=== PATIENT | male | born 1970 | race Caucasian/White ===

== ENCOUNTER → 2017-01-01 | Outpatient (CLI) | payer OTHER ==
[2017-01-01 10:18] LABS: ALT/SGPT 29 U/L (12-78); AST/SGOT 10 U/L (15-37); BLOOD UREA NITROGEN 14 mg/dl (7-18); BUN/CREATININE RATIO 15.7 (10-20); CALCIUM 8.7 mg/dl (8.5-10.1); CARBON DIOXIDE 30 mmol/L (21-32); CHLORIDE 106 mmol/L (98-107); CREATININE 0.91 mg/dl (0.60-1.40); GLUCOSE 94 mg/dl (70-99); POTASSIUM 3.7 mmol/L (3.5-5.1); SODIUM 141 mmol/L (136-145)
[2017-01-01 10:21] LABS: PROLACTIN 5.07 ng/mL
[2017-01-01 10:29] LABS: ALB/GLOB RATIO 1.2 (0.9-2); ALKALINE PHOSPHATASE 84 U/L (45-117); THYROID STIMULATING HORMONE 0.868 uIu/ml (0.300-4.500)
[2017-01-14 12:15] LABS: TESTOSTERONE,TOTAL 451 ng/dL (250-1100)
== END | disposition home or self-care (01) ==
LOC: C.LAB 08:33
PROVIDERS: ATTEND Plastic Surgery
DX: N62 Hypertrophy of breast (principal)

== ENCOUNTER → 2017-01-23 | Outpatient (CLI) | payer OTHER ==
--- NOTE | 2017-01-23 15:17 | MAMMOGRAPHY REPORT ---
MALE BILATERAL DIGITAL DIAGNOSTIC MAMMOGRAM TOMOSYNTHESIS WITH CAD: 01/23/2017 CLINICAL HISTORY: Asymptomatic Pre-Reduction. TECHNIQUE: Bilateral breast tomosynthesis in addition to standard 2D mammography was performed. Curre nt study was also evaluated with a Computer Aided Detection (CAD) system. COMPARISON: No prior exams were available for comparison. BREAST COMPOSITION: The breast parenchyma is nearly entirely fat. FINDINGS: No suspicious mass, architectural distortion, asymmetry or cluster of suspicious microcalc ifications is seen. There is no evidence of gynecomastia, focal skin thickening or nipple retraction . IMPRESSION: ACR BI-RADS CATEGORY 1: NEGATIVE There is no mammographic evidence of malignancy or gynecomastia. The patient has been verbally notifi ed of the results. Approximately 10% of breast cancers are not detected with mammography. A negative mammographic report should not delay biopsy if a clinically suggestive mass is present. Hermila Gaytan M.D. ay/:01/23/2017 10:55:14 Product Design Specialist: Sandy YUAN(Jose)(Izabella), [facility] letter sent: Normal 1/2 BI-RADS Code: ACR BI-RADS Category 1: Negative
== END | disposition home or self-care (01) ==
LOC: C.MAMM 09:57
PROVIDERS: ATTEND Plastic Surgery
DX: N62 Hypertrophy of breast (principal); R92.2 Inconclusive mammogram

== ENCOUNTER 2017-03-25 05:48 | Observation (INO) | payer OTHER, SELFPAY ==
[2017-03-21 09:57] VITALS: BMI 34.0
--- NOTE | 2017-03-21 10:32 | PAT Medication Instructions ---
Service Date Mar 21, 2017. Current Home Medication List Albuterol Hfa (Ventolin Hfa), 2 PUFFS INH PRN Aspirin (Aspirin Ec), 81 MG PO HS Atorvastatin (Lipitor), 10 MG PO HS Cetirizine (Zyrtec), 10 MG PO HS Cholecalciferol (Vitamin D3), 4,000 UNITS PO QAM Epinephrine (Epipen), 0.3 MG IM UD Fluticasone Prop/Salmeterol (Advair Diskus 250/50 60 Dose), 1 PUFF INH BID Lansoprazole (Prevacid), 30 MG PO QAM Montelukast Sodium (Singulair), 10 MG PO QAM Medication Instructions For Your Scheduled Surgery -Continue as directed: Epinephrine (Epipen), 0.3 MG IM UD - Hold the following medications per your surgeon's instructions: Aspirin (Aspirin Ec), 81 MG PO HS Cholecalciferol (Vitamin D3), 4,000 UNITS PO QAM - Take the following medications the morning of surgery with a sip of water: Montelukast Sodium (Singulair), 10 MG PO QAM Lansoprazole (Prevacid), 30 MG PO QAM Fluticasone Prop/Salmeterol (Advair Diskus 250/50 60 Dose), 1 PUFF INH BID Albuterol Hfa (Ventolin Hfa), 2 PUFFS INH PRN (if needed--and bring it with you to the hospital) - Take the following medications as scheduled the night before surgery: Atorvastatin (Lipitor), 10 MG PO HS Cetirizine (Zyrtec), 10 MG PO HS Fluticasone Prop/Salmeterol (Advair Diskus 250/50 60 Dose), 1 PUFF INH BID Albuterol Hfa (Ventolin Hfa), 2 PUFFS INH PRN (if needed) If you have any questions please call us at [phone] or [phone] or [phone]
[2017-03-21 12:00] LABS: BASO % 0.8 %; BASO ABS # 0.05 K/uL (0-0.2); COMPLETE YES; HEMATOCRIT 43.8 % (42-52); IG% 0.2 %; LYMPH % 38.5 %; LYMPH ABS # 2.35 K/uL (1.2-3.4); MEAN CORPUSCULAR HEMOGLOBIN 29.3 pg (25-34); MEAN CORPUSCULAR HGB CONC 33.3 g/dl (32-36); MEAN PLATELET VOLUME 10.2 fL (7.4-10.4); MONO % 8.5 %; PLATELET COUNT 228 K/uL (130-400); RED BLOOD COUNT 4.98 M/uL (4.7-6.1); WHITE BLOOD COUNT 6.11 K/uL (4.8-10.8)
[2017-03-21 12:10] LABS: PARTIAL THROMBOPLASTIN RATIO 1.1; PROTHROMBIN TIME (PATIENT) 11.1 SECONDS (9.0-12.0)
[2017-03-21 12:25] LABS: BUN/CREATININE RATIO 12.1 (10-20); CALCIUM 8.6 mg/dl (8.5-10.1); CREATININE 0.92 mg/dl (0.60-1.40); POTASSIUM 4.2 mmol/L (3.5-5.1)
[2017-03-25] VITALS (10 sets, daily range): BP systolic 128–154; BP diastolic 73–89; PULSE 68–84; TEMP 36.3–37.6; O2SAT 94–98; Ht 190.5 cm; Wt 123.4 kg
[~2017-03-25] VITALS: Ht 190.5 cm; Wt 123.4 kg
[~2017-03-25 05:48] MED LIST: ADVIN25/60 INH; ASPI81TA28 PO; ATOR10TA82 PO; CETI10TA84 PO; CHOL20007 PO; EPP3/2 IM; LANS30CA12 PO; MONT1TAB3 PO; VNTHFA/IN INH
[2017-03-25] MEDS ORDERED: ENOXAPARIN 40 MG/0.4 ML SYR SQ SCH (06:00)
[2017-03-25] MEDS ORDERED: LACTATED RINGER'S 1000ML 1,000 ML IV SCH ×2 (06:00→14:45)
[2017-03-25] MEDS ORDERED: CLINDAMYCIN 600 MG/54 ML D5W IV SCH (06:00)
[2017-03-25] MEDS ORDERED: CLINDAMYCIN PHOS 150 MG/ML 2 ML VIAL IV SCH (06:00)
--- NOTE | 2017-03-25 06:57 | History & Physical Bridge Note ---
H&P Re-Evaluation Bridge Note: I have examined the patient, reviewed the History & Physical and in the interval since the performance of the History & Physical I have noted the following changes of clinical significance: No changes noted
[2017-03-25] MEDS ORDERED: LIDOCAINE HCL 1% 20 ML VIAL ONE ×2 (07:01→07:09)
[2017-03-25] MEDS ORDERED: LIDOCAINE/EPINEPHRINE 1% 20 ML VIAL ONE ×2 (07:01→07:13)
[2017-03-25] MEDS ORDERED: MIDAZOLAM HCL 1 MG/ML 2ML VIAL ONE (07:02)
[2017-03-25] MEDS ORDERED: BUPIVACAINE 0.5 % 5 MG/1 ML MPF 30ML VIAL ONE (07:02)
[2017-03-25] MEDS ORDERED: EpINEphrine INJ 1MG/ML AMP 1 MG/ML AMP ONE (07:02)
[2017-03-25] MEDS ORDERED: FENTANYL CITRATE INJ 50 MCG/1 ML 2 ML VIAL ONE ×3 (07:02→13:30)
[2017-03-25] MEDS ORDERED: ACETAMINOPHEN 1000 MG/100 ML IV IV ONE (07:05)
[2017-03-25] MEDS ORDERED: BUPIVACAINE 0.25% 30 ML VIAL ONE ×2 (07:08→07:12)
[2017-03-25] MEDS ORDERED: HYDROmorphone INJ 1 MG/ML SYR IV PRN (07:45)
[2017-03-25] MEDS ORDERED: EpHEDrine SULFATE INJ 50 MG/ML AMP IV PRN (07:45)
[2017-03-25] MEDS ORDERED: ONDANSETRON INJ 2 MG/ML 2 ML VIAL IV PRN ×2 (07:45→13:30)
[2017-03-25] MEDS ORDERED: ATROPINE SULFATE 0.1 MG/ML 5ML SYR IV PRN (07:45)
[2017-03-25] MEDS ORDERED: FENTANYL CITRATE INJ 50 MCG/1 ML 2 ML VIAL IV PRN (07:45)
[2017-03-25] MEDS ORDERED: HYDROmorphone INJ 2 MG/ML SYR/VIAL ONE ×2 (07:57→08:41)
[2017-03-25] MEDS ORDERED: METOCLOPRAMIDE HCL INJ 5 MG/ML 2 ML VIAL ONE (07:59)
[2017-03-25] MEDS ORDERED: PROPOFOL IV EMULSION 10 MG/ML 20 ML VIAL IV ONE (07:59)
[2017-03-25] MEDS ORDERED: ROCURONIUM BROMIDE 10 MG/ML 5 ML VIAL IV ONE (07:59)
[2017-03-25] MEDS ORDERED: NEOSTIGMINE METHYLSULFATE 5 MG/5 ML SYR ONE (07:59)
[2017-03-25] MEDS ORDERED: GLYCOPYRROLATE INJ 0.2 MG/ML VIAL ONE (07:59)
[2017-03-25] MEDS ORDERED: LIDOCAINE HCL 2% 2 ML VIAL (20MG/ML) ONE (07:59)
[2017-03-25] MEDS ORDERED: ONDANSETRON INJ 2 MG/ML 2 ML VIAL ONE (07:59)
[2017-03-25] MEDS ORDERED: SCOPOLAMINE 1.5 MG TDSY TD ONE (09:57)
[2017-03-25] MEDS ORDERED: EpHEDrine SULFATE 50MG/5ML SYR ONE (10:49)
--- NOTE | 2017-03-25 13:09 | [facility] Post Operative Brief Note ---
Immediate Operative Summary Operative Date Mar 25, 2017. Pre-Operative Diagnosis Gynecomastia --male Pannus abdominal Post-Operative Diagnosis Same Procedure(s) Performed Bilateral Correction of Gynecomastia with Free Nipple Graft, and Panniculectomy Surgeon Dr Taylor Senior Safety Management Consultant Surgeon(s) Елена Spencer PA-C Estimated Blood Loss 100ML Findings bilateral breast tissue Specimens A. Left breast tissue B. Right breast tissue Drains ENA x4 Anesthesia general Complication(s) None Disposition Recovery Room / PACU
[2017-03-25] MEDS ORDERED: PROMETHAZINE HCL INJ 12.5 MG in SODIUM CHLORIDE 0.9% 50ML 50 ML IV PRN (13:30)
[2017-03-25] MEDS ORDERED: EPINEPHRINE ADULT AUTO-INJECT 0.3 MG SYR IM PRN (13:30)
[2017-03-25] MEDS ORDERED: MoRPHine SULFATE 4 MG/ML 1 ML CARP\\VIAL IV PRN (13:30)
[2017-03-25] MEDS ORDERED: MoRPHine SULFATE 2 MG/ML CARP IV PRN (13:30)
[2017-03-25] MEDS ORDERED: OXYCODONE/ACETAMINOPHEN 5-325 TAB PO PRN (13:30)
[2017-03-25] MEDS ORDERED: OXAZEPAM 10MG CAP PO PRN (13:30)
[2017-03-25] MEDS ORDERED: DiphenhydrAMINE HCL 50 MG/ML VIAL IV PRN (13:30)
[2017-03-25] MEDS ORDERED: ACETAMINOPHEN 325 MG TAB PO PRN (13:30)
[2017-03-25] MEDS ORDERED: HYDROmorphone INJ 1 MG/ML SYR ONE (13:51)
--- NOTE | 2017-03-25 14:10 | Anesthesiology Progress Note ---
Anesthesia Post Op Note Date & Time Mar 25, 2017 at 14:10 Vital Signs Pain Intensity: 5 Vital Signs Past 12 Hours Date Time Temp Pulse Resp B/P (MAP) Pulse Ox O2 Delivery O2 Flow Rate FiO2 03/25/17 14:00 36.1 67 15 150/81 100 Nasal Cannula 3 03/25/17 13:50 68 15 148/79 100 Nasal Cannula 3 03/25/17 13:40 64 15 150/76 100 Oxymask 3 03/25/17 13:30 77 14 139/77 99 Oxymask 5 03/25/17 13:23 36.0 67 16 150/83 99 Oxymask 10 03/25/17 06:40 36.9 18 135/85 (102) 98 Room Air Notes Mental Status: alert / awake / arousable, participated in evaluation Pt Amnestic to Procedure: Yes Nausea / Vomiting: adequately controlled Pain: adequately controlled Airway Patency, RR, SpO2: stable & adequate BP & HR: stable & adequate Hydration State: stable & adequate Anesthetic Complications: no major complications apparent
[2017-03-25] MEDS ORDERED: ALBUTEROL HFA 8 GM INHALER INH PRN (15:00)
[2017-03-25] MEDS: MoRPHine SULFATE 2 MG/ML CARP IV PRN ×3 (15:32→21:20)
[2017-03-25] MEDS: CLINDAMYCIN IV 600 MG in DEXTROSE 5% 50ML 50 ML IV SCH ×2 (16:04→21:25)
--- NOTE | 2017-03-25 16:48 | OPERATIVE REPORT ---
DATE OF OPERATION: 03/25/2017 PREOPERATIVE DIAGNOSES: Bilateral gynecomastia and lower abdominal pannus. POSTOPERATIVE DIAGNOSES: Same. PROCEDURES: Bilateral correction of gynecomastia with free nipple grafting and panniculectomy. SURGEON: Dr. Veronica Taylor. DOOR CLOSER MECHANIC: Елена Spencer PA-C. ANESTHESIA: General. COMPLICATIONS: None. INDICATION FOR THE PROCEDURE: The patient is a 46-year-old male who presented to my office following a 62-pound weight loss desiring improvement in his abdomen and also correction of gynecomastia. He noted symptoms of skin irritation under his breast as well as his lower abdomen. BRIEF DESCRIPTION OF THE PROCEDURE: The risks, benefits and alternatives of the procedure were explained to the patient who agreed and signed consent. He was identified and marked in the preoperative holding area. He was brought to the operating room where he was positioned supine and placed under anesthesia without incident. Surgical site was prepped and draped sterilely. A time-out procedure was performed. I began with the correction of gynecomastia on the left side. Left side was substantially larger and showed very round shaped breast with nipple inframammary fold distance greater than 7 cm. Due to minimal nipple sensation, I discussed preoperatively with the patient performing free nipple grafting in order to have better abdominal contour and I performed correction in the one staged procedure. The procedure was begun by marking the nipple for graft harvest. This was marked at a diameter of 28 mm. Lidocaine 1% with epinephrine was used to anesthetize the nipple-areolar complex as well as the planned incisions. A 15 blade scalpel was used to make the oval incision around the nipple and this was removed as a full thickness graft. It was passed off to the back table and was placed in a saline soaked sponge. I then began the mastectomy. The superior incision was initially made using 15 blade scalpel into the dermis. The incision was deepened using electrocautery through subcutaneous tissue until a breast capsule was able to be identified. Dissection was carried in this superficial fascial plane cephalad and to achieve a uniform flap thickness. This was determined to palpation. Of note, as this was a noncancerous procedure, the traditional borders of the mastectomy dissection were not utilized as the goal was improvement in contour. Once I was satisfied with the superior flap dissection, the dissection was carried down to pectoralis major muscle and the breast parenchyma was removed off of the pectoralis fascia. This was carried inferiorly to the inframammary fold which was then briefly undermined. The inferior mastectomy incision was then made using a 15 blade scalpel and the incision was deepened through dermis and subcutaneous fat down to breast parenchyma. This incision was predominantly located in the inframammary fold and followed the lateral border of the pectoralis muscle in order to provide more masculine contour to the chest. The breast parenchyma was removed and passed off for weighing. On the left side, the resection was 778 grams. Hemostasis was achieved with electrocautery. Marcaine plain 0.25% was used to anesthetize the wound periphery as well as the pectoralis fascia and to drain exit site. Hemostasis was achieved with electrocautery and wound was irrigated. A 15-Thai Gonzalo drain was placed in the wound and brought out through a separate stab incision. The wound was reapproximated using 2-0 Vicryl deep dermal sutures and 2-0 PDO running superficial dermal suture followed by 3-0 Monocryl running subcuticular suture. Dermabond Prineo was applied. The nipple graft was thinned using curved iris scissor and the new nipple position was marked and a 15 blade scalpel was used to make the incision. The recipient bed was deepithelialized. The graft was placed into the recipient site and eight 4-0 silk tie over bolster sutures were placed followed by a 4-0 chromic running suture to fix the nipple to the recipient bed. Two 4-0 chromic interrupted sutures were placed centrally within the graft as well. A similar procedure was undertaken on the right side. The right breast was significantly smaller; however, I elected to perform a free nipple grafting to improve symmetry. Total resection weight on the right was 418 grams. Following the procedure, there was excellent contour of the chest. Xeroform and sterile cotton were used to create a tie over bolster. Drains were sutured into place using 3-0 nylon. Attention was then turned to the panniculectomy portion of the procedure. The incisional markings were checked and 1% lidocaine with epinephrine was used to anesthetize the incisions. A 15 blade scalpel was used to make the incision into the underlying dermis and the incision was deepened using electrocautery through subcutaneous fat, Lloyd's fascia down to abdominal wall. Care was taken to bevel this incision medially in order to avoid entering the inguinal region. Electrocautery was used to elevate the skin flap along the abdominal wall fascia, taking care to either ligate with cautery 2-0 Vicryl suture any bleeding vessels or perforators. Dissection was carried to the level of the umbilicus. Using 2 skin hooks and a 15 blade scalpel, an incision was made around the umbilicus to facilitate dissection. The abdominal skin flap was then divided using electrocautery up to the level of the umbilicus and the umbilicus was dissected free, taking care to preserve some subcutaneous fat to preserve blood supply. I then carried dissection in the midline about another 8-10 cm to facilitate inset of the umbilicus. The bed was flexed and the skin flap was temporarily tacked to the pubic area using 2-0 Vicryl suture. Skin flaps were marked for excision. A 15 blade scalpel was used to make the incision and incision was deepened using electrocautery until the skin flap had been removed in its entirety. Similarly, this was performed on the right side. Hemostasis was achieved. Marcaine plain 0.25% was used to anesthetize the rectus fascia. The wound was irrigated using saline. Two 15-Thai Gonzalo drains were placed into the abdominal wound. Wound was closed in a lateral to medial direction using 2-0 Vicryl deep dermal sutures and 2-0 Vicryl Lloyd's fascia sutures. The neoumbilicus was marked and an inverted triangular incision was made using a 15 blade scalpel. Underlying subcutaneous fat was removed and the umbilicus was delivered through the incision. Due to the very long length of the umbilical bowl, the umbilicus was trimmed down. It was sutured into place using 4-0 chromic half buried vertical mattress and horizontal mattress sutures. The horizontal abdominal incision was closed using 2-0 PDO superficial dermal Quill suture and 3-0 Monocryl running subcuticular suture. Drains were sutured into place using 3-0 nylon. Dermabond Prineo was applied to both the breast incisions as well as the abdomen. Xeroform was packed into the umbilicus. Dry dressings and a binder was placed to the abdomen as well as the breast. The procedure was tolerated well. The patient was awakened and transferred to recovery in satisfactory condition. Елена Spencer PA-C was present and scrubbed throughout the entire procedure and was instrumental in providing retraction during dissection, preparing the nipple grafts and assisting in simultaneous wound closure. I attest to the content of the Intraoperative Record and any orders documented therein. Any exceptions are noted below. SRUTHI
[2017-03-25] MEDS ORDERED: IV FLUIDS COMPLETED PRN (17:00)
[2017-03-25] MEDS ORDERED: CETIRIZINE HCL 10 MG TAB PO SCH (21:00)
[2017-03-25] MEDS ORDERED: ATORVASTATIN 10 MG TAB PO SCH (21:00)
[2017-03-25] MEDS ORDERED: MONTELUKAST SOD 10 MG TAB PO SCH (21:00)
[2017-03-25] MEDS: FLUTICASONE/SALMETEROL 250/50 (ADVAIR) 14 PUFF/1 INHALER INH SCH (21:25)
[2017-03-25] MEDS ORDERED: LIDOCAINE HCL 2% JELLY 30 ML TUBE EXT ONE (22:20)
[2017-03-25] MEDS ORDERED: LIDOCAINE HCL 2% JELLY 30 ML TUBE EXT PRN (22:30)
[2017-03-25] MEDS: OXYCODONE/ACETAMINOPHEN 5-325 TAB PO PRN (23:34)
[2017-03-26 03:19] VITALS: BP 120/75; PULSE 76; TEMP 36.9; O2SAT 94
[2017-03-26] MEDS: MoRPHine SULFATE 2 MG/ML CARP IV PRN ×2 (03:41→07:51)
[2017-03-26] MEDS: OXYCODONE/ACETAMINOPHEN 5-325 TAB PO PRN (06:29)
[2017-03-26 07:00] VITALS: BP 113/75; PULSE 71; TEMP 37.4; O2SAT 97
[2017-03-26 07:29] LABS: BASO % 0.2 %; BASO ABS # 0.02 K/uL (0-0.2); COMPLETE YES; EOS % 2.5 %; HEMATOCRIT 38.1 % (42-52); IG% 0.1 %; LYMPH % 11.9 %; LYMPH ABS # 1.13 K/uL (1.2-3.4); MEAN CELL VOLUME 88.2 fL (80-100); MEAN CORPUSCULAR HEMOGLOBIN 30.1 pg (25-34); MEAN CORPUSCULAR HGB CONC 34.1 g/dl (32-36); MEAN PLATELET VOLUME 9.6 fL (7.4-10.4); MONO % 11.2 %; NEUT % 74.1 %; PLATELET COUNT 198 K/uL (130-400); RED BLOOD COUNT 4.32 M/uL (4.7-6.1); WHITE BLOOD COUNT 9.48 K/uL (4.8-10.8)
[2017-03-26] MEDS: FLUTICASONE/SALMETEROL 250/50 (ADVAIR) 14 PUFF/1 INHALER INH SCH (07:40)
[2017-03-26 07:41] LABS: INR 1.1 (0.9-1.1); PARTIAL THROMBOPLASTIN RATIO 1.1; PROTHROMBIN TIME (PATIENT) 12.2 SECONDS (9.0-12.0)
--- NOTE | 2017-03-26 07:48 | Anesthesiology Progress Note ---
Anesthesia Post Op Note Date & Time Mar 26, 2017 at 07:48 Vital Signs Vital Signs Past 12 Hours Date Time Temp Pulse Resp B/P (MAP) Pulse Ox O2 Delivery O2 Flow Rate FiO2 03/26/17 07:00 37.4 71 16 113/75 (88) 97 Room Air 03/26/17 03:19 36.9 76 18 120/75 (90) 94 Room Air 03/25/17 23:23 Room Air 03/25/17 22:59 37.3 84 18 128/73 (91) 94 Room Air 03/25/17 20:40 37.4 03/25/17 20:10 37.6 76 17 131/78 (95) 94 Room Air Notes Mental Status: alert / awake / arousable, participated in evaluation Pt Amnestic to Procedure: Yes Nausea / Vomiting: adequately controlled Pain: adequately controlled Airway Patency, RR, SpO2: stable & adequate BP & HR: stable & adequate Hydration State: stable & adequate Neuraxial Anesthesia: sensory block resolved Anesthetic Complications: no major complications apparent
--- NOTE | 2017-03-26 07:51 | Surgery Progress Note ---
Surgery Progress Note Date of Service Mar 26, 2017. Subjective Post OP Day: 1 + feeling well, + pain controlled, No complaints Objective Vital Signs: Date Time Temp Pulse Resp B/P (MAP) Pulse Ox O2 Delivery O2 Flow Rate FiO2 03/26/17 07:00 37.4 71 16 113/75 (88) 97 Room Air 03/26/17 03:19 36.9 76 18 120/75 (90) 94 Room Air 03/25/17 23:23 Room Air 03/25/17 22:59 37.3 84 18 128/73 (91) 94 Room Air 03/25/17 20:40 37.4 03/25/17 20:10 37.6 76 17 131/78 (95) 94 Room Air 03/25/17 17:15 36.6 77 18 135/78 (97) 95 Room Air 03/25/17 16:15 36.3 77 17 138/84 (102) 98 Nasal Cannula 2.0 03/25/17 15:30 98 Nasal Cannula 2.0 03/25/17 15:15 36.8 68 17 140/89 (106) 98 Nasal Cannula 2.0 03/25/17 14:45 36.6 73 16 154/73 (100) 98 Nasal Cannula 2.0 03/25/17 14:15 Nasal Cannula 03/25/17 14:15 36.6 73 12 141/89 (106) 98 Nasal Cannula 2.0 03/25/17 14:10 74 15 129/79 100 Nasal Cannula 3 03/25/17 14:00 36.1 67 15 150/81 100 Nasal Cannula 3 03/25/17 13:50 68 15 148/79 100 Nasal Cannula 3 03/25/17 13:40 64 15 150/76 100 Oxymask 3 03/25/17 13:30 77 14 139/77 99 Oxymask 5 03/25/17 13:23 36.0 67 16 150/83 99 Oxymask 10 Physical Exam: Gonzalo drainage (bloody and serous) General Appearance: WD/WN, no apparent distress Incision(s): clean, dry, intact, no erythema Laboratory Results: Results Past 24 Hours Test 03/26/17 06:53 Range/Units White Blood Count 9.48 4.8-10.8 K/uL Red Blood Count 4.32 4.7-6.1 M/uL Hemoglobin 13.0 14.0-18.0 g/dL Hematocrit 38.1 42-52 % Mean Corpuscular Volume 88.2 80-100 fL Mean Corpuscular Hemoglobin 30.1 25-34 pg Mean Corpuscular Hemoglobin Concent 34.1 32-36 g/dl Platelet Count 198 130-400 K/uL Mean Platelet Volume 9.6 7.4-10.4 fL Neutrophils (%) (Auto) 74.1 % Lymphocytes (%) (Auto) 11.9 % Monocytes (%) (Auto) 11.2 % Eosinophils (%) (Auto) 2.5 % Basophils (%) (Auto) 0.2 % Neutrophils # (Auto) 7.02 1.4-6.5 K/uL Lymphocytes # (Auto) 1.13 1.2-3.4 K/uL Monocytes # (Auto) 1.06 0.11-0.59 K/uL Eosinophils # (Auto) 0.24 0-0.5 K/uL Basophils # (Auto) 0.02 0-0.2 K/uL RDW Standard Deviation 43.0 36.4-46.3 fL RDW Coefficient of Variation 13.4 11.5-14.5 % Immature Granulocyte % (Auto) 0.1 % Immature Granulocyte # (Auto) 0.01 0.00-0.02 K/uL Prothrombin Time 12.2 9.0-12.0 SECONDS Prothromb Time International Ratio 1.1 0.9-1.1 Activated Partial Thromboplast Time 29.7 21.0-31.0 SECONDS Partial Thromboplastin Ratio 1.1 Assessment & Plan s//p excision of gynecomastia with free nipple graft and panniculectomy 1. doing well POD#1, d/c home today with follow-up in office tomorrow. post-op instructions were reviewed
--- NOTE | 2017-03-26 07:54 | Discharge Instructions ---
Discharge Instructions Date of Service Mar 26, 2017. Admission Reason for Admission: Gynecomastia; Abdominal Pannus Discharge Discharge Diagnosis / Problem: gynecomastia, abdominal pannus Discharge Goals Goal(s): Decrease discomfort Activity Recommendations Activity Limitations: per Instructions/Follow-up section ACTIVITY RECOMMENDATIONS: __Normal activities _x_No bending, lifting or straining _x_No driving __Driving allowed when you are off pain medications _x_Walking permitted __You should have help at home for ___ days DRESSINGS: __No dressings required _x_Keep dressings dry/in place until first office visit __Remove dressings ___ and leave dressings off __Apply ice ___ days __Remove dressings and reapply garment __Apply antibiotic ointment (Bacitracin, Neosporin, etc) to wounds 3-4 times/ day for 10 days BATHING: _x_Keep dressings dry _x_Sponge bathing permitted __Showering permitted __No swimming, hot tubs or soaking in a tub MEDICATIONS: Resume previous medications unless instructed otherwise by your surgeon. _x_Do not use aspirin, Motrin, Advil or Ibuprofen as these may promote bleeding. Please use Tylenol. _x_Prescription(s) provided: antibiotics and pain medication were provided at your last office visit OTHER INSTRUCTIONS: _x_Record drain output 2-3 times per day. Call office to have drain removed when it is less than 10cc in 24 hours. You may have one drain removed at a time if it is ready. SPECIAL CARE INSTRUCTIONS: * It is normal to have a mild fever after surgery. If your temperature is higher than 101.5 degrees F, please call the office at [phone]. * Constipation is a typical side effect of pain medication. An over-the- counter stool softener will help relieve this. * Leaking around surgical drains may occur and should not cause concern. Sometimes these drains become clogged. If this happens, remove the bulb and milk the clot out of the tube, then replace the bulb. * Drainage from wounds after liposuction is normal and should be expected. Garments will become soiled. You should protect furniture and bedding. This drainage should mostly subside within 2-3 days. Leave garments in place unless instructed to remove them. * If you have unusual drainage from a wound or are concerned you have an infection or have any questions or concerns, please call the office at [phone]. FOLLOW UP VISIT: If not already scheduled, please call the office, , when you return home after surgery to schedule an appointment to be seen in __1_ days. Bring a cotton undershirt to your appointment to wear under binders. . Current Hospital Diet Patient's current hospital diet: Regular Diet Discharge Diet Recommended Diet: Regular Diet Procedures Procedures Performed: Bilateral Correction of Gynecomastia with Free Nipple Graft, and Panniculectomy Pending Studies Studies pending at discharge: yes List of pending studies: pathology Medical Emergencies . Who to Call and When: Medical Emergencies: If at any time you feel your situation is an emergency, please call 911 immediately. . Non-Emergent Contact Non-Emergency issues call your: Primary Care Provider, Surgeon . "Provider Documentation" section prepared by Елена Spencer. . VTE Core Measure Inpt VTE Proph given/why not?: Enoxaparin (Lovenox)SQ, SCD's [place] Drug Monitoring Program Search Results: no issues identified
[2017-03-26 07:55] LABS: BUN/CREATININE RATIO 8.6 (10-20); CALCIUM 8.3 mg/dl (8.5-10.1); CREATININE 0.97 mg/dl (0.60-1.40); POTASSIUM 3.6 mmol/L (3.5-5.1)
[2017-03-26 09:00] VITALS: BP 113/75; PULSE 71; TEMP 37.4; O2SAT 97
[2017-03-26] MEDS ORDERED: ENOXAPARIN 40 MG/0.4 ML SYR SQ SCH (09:00)
[2017-03-26] MEDS ORDERED: MULTIVITAMIN TAB PO SCH (09:00)
[2017-03-26] MEDS ORDERED: PANTOprazole SOD 40 MG TAB PO SCH (09:00)
--- NOTE | 2017-03-26 13:15 | Discharge Summary ---
Discharge Summary Date of Service Mar 26, 2017. Admission Date/Reason Mar 25, 2017 at 13:26 Gynecomastia; Abdominal Pannus. Discharge Date/Disposition Mar 26, 2017 Home Diagnosis Principal Diagnosis: gynecomastia, abdominal pannus Procedure(s) Performed excision of bilateral gynecomastia with free nipple graft and panniculectomy Medication Reconciliation Continued Medications: Albuterol Hfa (Ventolin Hfa) 200 Puffs/17101 Mcg Aers 2 PUFFS INH PRN, #1 INHALER Atorvastatin (Lipitor) 10 Mg Tab 10 MG PO HS, TAB Cetirizine (Zyrtec) 10 Mg Tab 10 MG PO HS, TAB Cholecalciferol (Vitamin D3) 2,000 Unit Tab 4000 UNITS PO QAM for 90 Days, TAB 3 Refills Epinephrine (Epipen) 0.3 Mg/0.3 Ml Inj 0.3 MG IM UD, BOX Fluticasone Prop/Salmeterol (Advair Diskus 250/50 60 Dose) 1 Ea Aerp 1 PUFF INH BID, INHALER Lansoprazole (Prevacid) 30 Mg Capcr 30 MG PO QAM, CAP Montelukast Sodium (Singulair) 10 Mg Tab 10 MG PO QAM, TAB Discontinued Medications: Aspirin (Aspirin Ec) 81 Mg Tab 81 MG PO HS Admission Physical Exam As per Admitting History & Physical. Hospital Course Patient presented to [facility] with history of gynecomastia and abdominal pannus after extensive weight loss. He was taken to the OR and underwent excision of bilateral gynecomastia with free nipple graft and panniculectomy. He tolerated the procedure well adn was taken to recovery. The patient was admitted for observation. On POD#1 he was ambulating, voiding and tolerating a regular diet. On exam, his drains had serosanguineous output and his incisions were CDI. He was discharged home with instructions to follow-up in the office on POD#2. Discharge Instructions Please refer to the electronic Patient Visit Report (Discharge Instructions) for additional information.
== END 2017-03-26 10:35 | disposition home or self-care (01) ==
LOC: C.ACU 05:48 → C.MSN 13:26 → ENRESERV 13:48
PROVIDERS: ADMIT Plastic Surgery; ATTEND Plastic Surgery
DX: N62 Hypertrophy of breast (principal); E65 Localized adiposity; J45.909 Unspecified asthma, uncomplicated; K21.9 Gastro-esophageal reflux disease without esophagitis; E66.9 Obesity, unspecified; Z68.34 Body mass index [BMI] 34.0-34.9, adult; Z90.89 Acquired absence of other organs; Z98.52 Vasectomy status; Z88.0 Allergy status to penicillin; Z79.82 Long term (current) use of aspirin; Z79.899 Other long term (current) drug therapy; Z82.49 Family history of ischemic heart disease and other diseases of the circulatory system; Z83.49 Family history of other endocrine, nutritional and metabolic diseases; Z82.0 Family history of epilepsy and other diseases of the nervous system

== ENCOUNTER → 2017-12-11 | Outpatient (CLI) | payer OTHER ==
[~2017-12-11] MED LIST changes: -ASPI81TA28 PO
[2017-12-11 12:25] LABS: ALBUMIN 4.2 gm/dl (3.4-5.0); ALKALINE PHOSPHATASE 85 U/L (45-117); ALT/SGPT 23 U/L (12-78); AST/SGOT 15 U/L (15-37); BLOOD UREA NITROGEN 15 mg/dl (7-18); CALCIUM 8.9 mg/dl (8.5-10.1); CARBON DIOXIDE 31 mmol/L (21-32); CHOLESTEROL 115 mg/dl (0-200); CREATININE 1.08 mg/dl (0.60-1.40); GLUCOSE 87 mg/dl (70-99); LDL CHOLESTEROL CALCULATED 66 mg/dl; POTASSIUM 3.7 mmol/L (3.5-5.1); SODIUM 136 mmol/L (136-145); TOTAL PROTEIN 7.8 gm/dl (6.4-8.2)
== END | disposition home or self-care (01) ==
LOC: C.LAB 09:44
PROVIDERS: ATTEND Internal Medicine
DX: Z00.00 Encounter for general adult medical examination without abnormal findings (principal); E78.5 Hyperlipidemia, unspecified; N62 Hypertrophy of breast